=== PATIENT | female | born 1950 | race Caucasian/White ===

== ENCOUNTER 2025-01-17 21:23 | Inpatient (IN) | payer MEDICARE ==
[~2025-01-17] VITALS: Ht 152.4 cm; Wt 52.0 kg
--- NOTE | 2025-01-17 21:36 | ELECTROCARDIOGRAPH REPORT ---
[facility] Test Date: 2025-01-17 Test Time: 21:27:41 Pat Name: JOSE LUIS LOPEZ Department: EMERGENCY ROOM Room: [place] [address] Gender: F Train Driver: : [id number] Requested By: ANA LEVINE Order Number: [id number] Reading MD: Dr. Jason Yousif Measurements Intervals [place] Rate: 80 P: 44 [place]: 141 QRS: -19 QRSD: 83 T: 19 QT: 358 QTc: 413 Interpretive Statements Pacemaker spikes or artifacts Sinus rhythm Borderline left axis deviation Low voltage, precordial leads Abnormal R-wave progression, late transition Borderline T abnormalities, anterior leads Electronically Signed On 01-18-2025 17:29:[address] Jason Yousif Please click the below link to view image of tracing.
[2025-01-17 21:49] LABS: MEAN PLATELET VOLUME 7.9 FL (7.4-10.4); RED CELL DISTRIBUTION WIDTH 14.0 % (11.5-14.5)
--- NOTE | 2025-01-17 21:50 | Physician Documentation ---
History of Present Illness ~ Chief Complaint: Chest Pain Stated Complaint: CHEST PAIN Time Seen by MD: 21:47 HPI Patient presents to the emergency room with intermittent chest pain over the past month associated with shortness of breath. No prior instances. She was at her 's Cardiac rehab and was discussing this and was told to come in to be evaluated. Pain that has not exacerbated or relieved by nothing. She feels it may be heartburn. She has not had a stress test in many years. History of hyperlipidemia and borderline diabetes. Medication Reconciliation Allergies: Coded Allergies: trazodone (Verified Allergy, Severe, Tongue swelling, 01/17/25) Penicillins (Verified Allergy, Unknown, 01/17/25) >5 years, hives, no treatment, PEN-FAST 2 Review of Systems ROS All review of systems negative except as per HPI Physical Exam Vital Signs: Temperature: 96.8, Source: Temporal, Heart Rate: 82, Respiratory R ate: 15, BP: 178/83, Pulse Oximetry: 99, Weight: 52.000 Physical Exam General: Patient is awake, alert, oriented x4 in no acute distress Head: Normocephalic and atraumatic. Eyes: Conjunctival normal. EOMI. PERRL. ENT: Mucous membranes moist. Neck: Supple, trachea is midline. Chest: Clear to auscultation bilaterally without rales, rhonchi, or wheezes. There is no accessory muscle use or retractions. Cardiac: RRR without murmurs, gallops, or rubs. Abd: Soft, nondistended, nontender, with normoactive bowel sounds. No guarding, rebound, or rigidity. Extremities: Normal strength. Normal range of motion. No deformities or edema. No calf tenderness to palpation Progress Results/Orders Results/Orders Orders - TERELL NATARAJAN MD Chest,Single View (01/17/25 21:51) Monitor (01/17/25 21:35) Saline Lock (01/17/25 21:35) Oxygen (01/17/25 21:35) Hs Troponin I W Calculations (01/17/25 23:35) Hs Troponin I W Calculations (01/18/25 00:35) Page Hospitalist (01/17/25 22:10) Fill Out Med Reconciliation (01/17/25 22:10) Cta Chest Pe (01/17/25 23:22) Completed Orders - TERELL NATARAJAN MD Chest,Single View (01/17/25 21:51) Cbc/Diff (01/17/25 21:35) BMP (01/17/25 21:35) PBNP (01/17/25 21:35) Electrocardiogram (01/17/25 21:35) Hs Troponin I W Calculations (01/17/25 21:35) D-Dimer (01/17/25 22:08) Famotidine/Pf Iv Inj (Pepcid Iv Inj) (01/17/25 22:10) Mag & Alum Hydrox/Simeth Susp (Maalox Or (01/17/25 22:10) Aspirin 325mg Tablet (Aspirin 325mg Tabl (01/17/25 22:10) Medications Received in ER Medications (Trade) Dose Ordered Sig/Puma Route PRN Reason Start Time Stop Time Status Last Admin Dose Admin (Pepcid IV inj) 20 mg ONCE ONCE IV 01/17/25 22:10 01/17/25 22:11 DC 01/17/25 22:37 20 MG (Maalox oral suspension) 30 ml ONCE ONCE PO 01/17/25 22:10 01/17/25 22:11 DC 01/17/25 22:37 30 ML (aspirin 325mg tablet) 1 tab ONCE ONCE PO 01/17/25 22:10 01/17/25 22:12 DC 01/17/25 22:37 1 TAB Vital Signs 01/17/25 21:33 Temp 96.8 Pulse 82 Resp 15 B/P (MAP) 178/83 Pulse Ox 99 Laboratory Tests Test 01/17/25 21:42 White Blood Count 7.9 Red Blood Count 4.72 Hemoglobin 13.5 Hematocrit 40.4 Mean Corpuscular Volume 85.6 Mean Corpuscular Hemoglobin 28.6 Mean Corpuscular Hemoglobin Concent 33.5 Red Cell Distribution Width 14.0 Platelet Count 290 Mean Platelet Volume 7.9 Neutrophils (%) (Auto) 53.7 Lymphocytes (%) (Auto) 37.2 Monocytes (%) (Auto) 6.6 Eosinophils (%) (Auto) 2.0 Basophils (%) (Auto) 0.5 Neutrophils # (Auto) 4.2 Lymphocytes # (Auto) 2.9 Monocytes # (Auto) 0.5 Eosinophils # (Auto) 0.2 Basophils # (Auto) 0.0 CBC Comment D-Dimer 1.24 H D-Dimer Comment Sodium Level 138 Potassium Level 3.7 Chloride Level 103 Carbon Dioxide Level 31.5 Anion Gap 4 L Blood Urea Nitrogen 15 Creatinine 0.80 Estimated GFR/1.73 m2 71 BUN/Creatinine Ratio 18.8 Glucose Level 99 Calcium Level 8.8 Troponin I High Sensitivity 8 Pro-B-Type Natriuretic Peptide 113 Albumin 3.4 Chemistry Comments EKG/XRAY/CT/US/VASC/MRI EKG : Additional Comment EKG interpreted by myself shows time of 08/07/2026, rate 80, sinus rhythm, normal axis, no ST changes Chest X-Ray : Additional Comments One view chest x-ray interpreted by myself shows no effusions, no infiltrates and normal cardiac silhouette Medical Decision Making Findings Heart score of four. Patient presented to the emergency room with chest pain as per HPI. Differentials include but are not limited to ACS, GERD, pulmonary embolism, musculoskeletal pain, chest wall pain, esophageal spasm therefore emergent labs and imaging indicated. Chest x-ray is reassuring. Of concern is patient's intermittent symptoms that are not relieved by her usual heartburn medications. She states that this pain feels a bit different. Given her elevated heart score she is considered high risk and we will admit for further investigation. Patient does have an elevated D-dimer in his CTA has been ordered to rule out pulmonary embolism Departure Admitted to Inpatient Unit: yes, to hospitalist Impression: Primary Impression: Chest pain Condition: Guarded Referrals: NO PRIMARY CARE PROVIDER (PCP) Signature Scribe Signature: No scribe Attestation: The note accurately reflects work and decisions made by me.Terell Natarajan MD 01/17/25 22:08 TERELL NATARAJAN MD Jan 17, 2025 21:50
[2025-01-17 22:11] LABS: CREATININE 0.80 MG/DL (0.40-0.90); PRO BRAIN NATRIURETIC PEPTIDE 113 PG/ML (0-125); TOTAL CARBON DIOXIDE 31.5 MMOL/L (24-32); eCRCL 46 ML/MIN; eGFR 71 ML/MIN
[2025-01-17] MEDS: mag hydrox/Alum hydrox/simeth 30ml oral suspension PO ONE (22:37)
[2025-01-17] MEDS: famotidine/PF 10 mg/ml inj IV ONE (22:37)
--- NOTE | 2025-01-17 22:46 | RADIOLOGY REPORT ---
EXAM: DI CHEST,SINGLE VIEW CLINICAL HISTORY: CP TECHNIQUE: Single AP view of the chest WID: COMPARISON: None FINDINGS: Lines and tubes: None Chest: The heart size and pulmonary vasculature is within normal limits. No pleural effusion, pneumothorax, or consolidation. The osseous structures are grossly intact. IMPRESSION: No acute cardiopulmonary abnormality.
[2025-01-17] MEDS ORDERED: magnesium Cl slow-release 64mg tablet PO PRN (23:45)
[2025-01-17] MEDS ORDERED: ondansetron/PF 4mg/2ml inj IV PRN (23:45)
[2025-01-17] MEDS ORDERED: metoprolol tartrate 1mg/ml inj IV PRN (23:45)
[2025-01-17] MEDS ORDERED: mag hydrox/Alum hydrox/simeth 30ml oral suspension PO PRN (23:45)
[2025-01-17] MEDS ORDERED: HYDROcodone/acetaminophen 5mg/325mg tablet PO PRN (23:45)
[2025-01-17] MEDS ORDERED: magnesium hydroxide 30ml (MOM) UD suspension PO PRN (23:45)
[2025-01-17] MEDS ORDERED: potassium Cl 40MEQ/1/2NS 520ml 520 ML IV PRN (23:45)
[2025-01-17] MEDS ORDERED: magnesium sulf-water 2g/50mL 50 ML IV PRN (23:45)
[2025-01-17] MEDS ORDERED: aminophylline 500mg/20ml vial IV PRN (23:45)
[2025-01-17] MEDS ORDERED: potassium Cl 20 mEq SR tablet PO PRN (23:45)
[2025-01-17] MEDS ORDERED: magnesium sulf-water 4G/100mL 100 ML IV PRN (23:45)
[2025-01-17 23:55] LABS: UA COLLECTION TYPE CLN CATCH MIDSTREAM
[2025-01-17 23:56] LABS: LEUKOCYTE ESTERASE ,URINE SMALL (Neg); NITRITES, URINE NEGATIVE (Neg); OCCULT BLOOD,URINE MODERATE (Neg)
[2025-01-18] VITALS (13 sets, daily range): BP systolic 137–171; BP diastolic 62–89; PULSE 60–90; RESP 14–21; TEMP 97.1–98.2; O2SAT 94–100
[2025-01-18 00:02] LABS: MUCUS STRANDS FEW /LPF (Neg); SQUAMOUS EPITHELIAL CELL,UR FEW /LPF (FEW)
[2025-01-18 00:06] LABS: CREATININE 0.87 MG/DL (0.40-0.90); PHOSPHORUS 3.6 MG/DL (2.3-4.5); TOTAL CARBON DIOXIDE 27.7 MMOL/L (24-32); eCRCL 42 ML/MIN; eGFR 64 ML/MIN
[2025-01-18 00:07] LABS: APTT 25 SECONDS (22-32); INR 1.0 INR
--- NOTE | 2025-01-18 00:14 | HISTORY AND PHYSICAL-Residence ---
History & Physical Providers to CC Resident Creating Document: SHAILESH STOCK RES ~ History of Present Illness Reason for Admit\Complaint: Chest pain History of Present Illness The 74-year-old female presented to the ER with a chief concern of chest pain that started earlier this morning. She was taking out garbage and she fell achy pain in the lower mid chest radiating to the back. [place] nauseous. No sweating. She sat with the pain got worse and so she came to the ER. In the ER, she received aspirin 324 mg p.o. once and also Pepcid. Now, stated that the pain is better. Denies any increase in pain with deep breaths. Denies any exacerbating or relieving factors. Denies any association with food or water intake. She had a similar kind of pain about two and half weeks back that lasted for about 45 minutes. She had a fall earlier this morning by tripping over a soda can. Fell on her knees and hands. Did not hit her chest to the floor and did not hit her head to the floor and did not lose consciousness. Denies any previous cardiac history. Denies palpitations or shortness of breaths, dizziness or syncope, dysuria, vomiting, constipation or diarrhea or any other complaints. Denies smoking tobacco and occasionally drinks alcohol. Takes medication for hyperlipidemia. 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 Daughter at the bedside. Never had a colonoscopy in the past. Gets a Cologuard test done every year and the preop signs were negative. Had one done recently but result not available yet. Allergies: Coded Allergies: trazodone (Verified Allergy, Severe, Tongue swelling, 01/17/25) Penicillins (Verified Allergy, Unknown, 01/17/25) >5 years, hives, no treatment, PEN-FAST 2 Past Medical History Past Medical History Hyperlipidemia, vitamin-D supplementation, history of ITP-s/p rituximab, platelets and blood transfusions about 10 years back Past Surgical History Surgical History Comment Two sections, cholecystectomy, back surgery Past Social History Social History Comment Denies smoking tobacco. Occasionally drinks alcohol. Denied abusing any other recreational drugs ROS ROS Constitutional: No fever, chills, dizziness, weakness, weight gain or loss Eyes: No pain, erythema, discharge, blurring of vision ENT: No sore throat, epistaxis, tinnitus Cardiovascular: Chest pain present. No chest pressure, chest discomfort, palpitations, syncope, lower extremity edema, paroxysmal nocturnal dyspnea Respiratory: No shortness of breath, cough, hemoptysis Gastrointestinal: Normal appetite. No nausea, vomiting, diarrhea, constipation, hematemesis, abdominal pain, bloating, melena or fresh blood Genitourinary: No frequency, urgency, nocturia, hematuria or dysuria Musculoskeletal: No arthralgias or myalgias Integumentary: No change in skin, hair, nails. No swelling, bruising, abrasions Neurologic: No headache, neck pain, numbness or tingling of the extremities, weakness Psychiatric: No delusions, depression, loss of interest in normal activity or change in sleep pattern, hallucinations, suicidal ideations Endocrine: No fatigue, weakness, polydipsia, polyuria, change in appetite, heat or cold intolerance, sweating, dry skin Hematological: No bleeding, petechiae, bruising Allergies: No asthma or urticaria Exam Vitals: Vital Signs Date Time Temp Pulse Resp B/P (MAP) Pulse Ox O2 Delivery O2 Flow Rate FiO2 01/17/25 23:37 60 16 158/70 (99) 100 01/17/25 21:33 96.8 General: Alert and oriented x4 HEENT: Normocephalic and atraumatic. Pupils equal round reactive to light and accommodation. Extraocular movements intact. Oral and nasal mucosa moist Neck: Trachea is in midline. No masses or JVD Chest: Bilateral normal breath sounds. No crackles, rhonchi or wheezes Cardiovascular: Regular rate and rhythm. S1-S2 normal. No rubs or murmurs Abdomen: Soft, nontender nondistended. Bowel sounds present Extremities: No cyanosis, clubbing or edema Central Nervous System: No gross sensory or motor deficits. CN II to XII grossly intact Skin: Warm and dry. Has a reddish birthmark on right leg near ankle Diagnostic Data Last Recorded Lab Results: 01/17/252 01/17/25 2312 Diagnostic Data: Laboratory Tests Test 01/17/25 21:42 Prothrombin Time 10.1 SECONDS (9.0-12.0) INR International Normalized Ratio 1.0 INR Activated Partial Thromboplast Time 25 SECONDS (22-32) D-Dimer 1.24 MG/L FEU (0-0.50) H D-Dimer Comment Coagulation Comments Advance Care Planning Advanced Care plannin - 30 Minutes Additional Plan Chest pain Possible unstable angina vs GERD Heart score4, SHIRA score 1 Received Pepcid 20 mg IV once and aspirin 325 mg p.o. once in the ER Feels better with the above medications D-dimer slightly elevated-1.24. So, chest CTA ordered by the ER physician. Pending result Chest x-ray did not show any significant abnormalities Continue aspirin 81 mg p.o. daily, metoprolol succinate 25 mg p.o. daily and Lipitor 40 mg p.o. daily EKG showed no sinus rhythm, regular rate with no significant ST changes. T-wave inversion lead III - less than 2 mm Lipid panel and A1c ordered TSH and free T4 ordered Lexiscan tomorrow in the a.m. NPO after midnight Consult Cardiology if abnormal Lexiscan Continue Protonix 40 mg p.o. daily Nitro 0.4 mg sublingual Q 5 minutes p.r.n. Morphine 1 mg IV q.4h p.r.n. for pain Continue normal saline 75 cc/hour Hyperlipidemia Lipid panel ordered Started Lipitor 40 mg p.o. daily Unsure about home medication. Awaiting med reconciliation History of ITP S/p rituximab, platelet transfusion blood transfusion many years back Today, platelets within normal limits # awaiting home medication reconciliation DVT prophylaxis: Lovenox 40 mg subcutaneous daily Diet: Heart healthy diet . NPO after midnight Shailesh Stock MD Internal Medicine Resident, PGY 3 Date of Service: Jan 18, 2025 Billing Provider: BG CABELLO MD,SHAILESH RES Jan 18, 2025 00:14
[2025-01-18] MEDS: normal saline 1000ml 1,000 ML IV SCH (00:50)
[2025-01-18] MEDS ORDERED: ZOLP-679 PO (01:31)
[2025-01-18] MEDS ORDERED: IBAN150T21 PO (01:31)
[2025-01-18] MEDS ORDERED: LOSA100T58 PO (01:31)
--- NOTE | 2025-01-18 02:22 | RADIOLOGY REPORT ---
INDICATION: elevated d-d TECHNIQUE: Multidetector CTA of the chest was performed of the chest with 100 cc of intravenous contr ast. PULMONARY ANGIOGRAPHY PROTOCOL was utilized using a bolus-tracking technique centered on the neha n pulmonary artery. Axial, coronal and sagittal multiplanar and MIP reformats were performed. Radiation Dose Information: CT Dose: CTDI volume is 14.4 mGy. Dose-length product is 467.7 mGy*cm The dose indicators for CT are the volume Computed Tomography (CT) Dose Index (CTDIvol) and the Dose Length Product (DLP), and are measured in units of mGy and mGy-cm, respectively. These indicators are not patient dose, but values generated from the CT scanner acquisition factors. The report includes radiation exposure data for exposures received during this examination. Comparison: None Findings: Airway appears patent. Thyroid gland appears unremarkable. No focal filling defect within the pulmon shani artery to suggest pulmonary embolism. The thoracic aorta appears normal in caliber and contour. No sizable pericardial or pleural effusion. The heart is prominent size. No significant adenopathy. Lungs appear clear without focal consolidation. Visualized portions of the upper abdomen demonstrate small hiatal hernia. There has been prior cholec ystectomy with dilation of the common bile duct to 1.8 cm. Mild intrahepatic biliary dilatation. IMPRESSION: 1. No evidence of pulmonary embolus. 2. Dilated common bile duct and intrahepatic biliary dilatation in the presence of cholecystectomy. C orrelation with bilirubin levels and LFTs would be of benefit. Consider dedicated imaging.
[2025-01-18 03:20] LABS: MEAN PLATELET VOLUME 8.1 FL (7.4-10.4); RED CELL DISTRIBUTION WIDTH 14.0 % (11.5-14.5)
[2025-01-18 03:27] LABS: APTT 24 SECONDS (22-32); INR 1.0 INR
[2025-01-18 03:40] LABS: CHOL/HDL RATIO 3.3 (0.00-4.99); CREATININE 0.69 MG/DL (0.40-0.90); LDL CHOLESTEROL 115 MG/DL (50-100); PHOSPHORUS 3.2 MG/DL (2.3-4.5); TOTAL CARBON DIOXIDE 27.8 MMOL/L (24-32); eCRCL 53 ML/MIN; eGFR 84 ML/MIN
[2025-01-18] MEDS: potassium Cl 20 mEq SR tablet PO PRN (06:12)
[2025-01-18] MEDS: pantoprazole 40mg Tablet.DR PO SCH (07:30)
[2025-01-18] MEDS: aspirin 81mg, enteric-coated 1 TAB TABLET.DR PO SCH (08:00)
[2025-01-18] MEDS: K and/or MAG REPLACEMENT MC SCH (08:00)
[2025-01-18] MEDS: metoprolol succinate 25mg (24-HOUR) SR. Tablet PO SCH (08:00)
[2025-01-18] MEDS: regadenoson 0.4mg/5ml syringe IV PRN (11:07)
[2025-01-18] MEDS ORDERED: SERT-434 PO (11:55)
[2025-01-18] MEDS ORDERED: ROSU40TA89 PO (11:55)
[2025-01-18] MEDS ORDERED: ZOLP5TAB8 PO (12:12)
--- NOTE | 2025-01-18 12:27 | RADIOLOGY REPORT ---
Procedure: NM NM CHRIS SCAN Exam Date: 01/18/2025 10:13 AM Reason for study/Clinical History: unstable angina Comparison Study: None Myocardial Perfusion Study with SPECT Technique: The patient received an intravenous injection of 7.3 mCi of technetium-99m sestamibi whil e at rest. After a short delay, SPECT tomographic images of the heart were obtained. The patient th en went to the stress lab where they received an intravenous infusion of 0.[address] andard protocol. 30 mCi of technetium-99m sestamibi was injected intravenously immediately after th e start of the lexiscan infusion. Gated SPECT tomographic images of the heart were acquired and proc essed. Findings: No reversible perfusion defect. End diastolic volume: 37 mL End systolic volume: 5mL The left ventricular ejection fraction is 86 %. (normal greater than 50%) Impression: No reversible defect. The left ventricular ejection fraction is 86 %.
--- NOTE | 2025-01-18 12:51 | PROGRESS NOTE- Residence ---
Progress Note - Resident Providers to CC Resident Creating Document: NORY AZEVEDO RES ~ Antibiotic Timeout Antibiotic Ordered?: No Subjective This is 74-year-old female who presented to the ER with a chief concern of lower mid chest pain,radiating to her back,patient rated the pain 6/10 associated with nausea and mild shortness of breath. Patient denies palpitations or shortness of breaths, dizziness or syncope, dysuria, vomiting, constipation or diarrhea or any other complaints. In the ER, she received aspirin 324 mg p.o. once and also Pepcid. Now, stated that the pain is better.Denies any exacerbating or relieving factors. Denies any association with food or water intake. She had a similar kind of pain about two and half weeks back that lasted for about 45 minutes. She had a fall earlier this morning by tripping over a soda can. Fell on her knees and hands. Did not hit her chest to the floor and did not hit her head to the floor and did not lose consciousness. Patient stated that she had a history of ITP and received rituximab and platelets and blood transfusions about 10 years back. Objective Vital Signs Date Time Temp Pulse Resp B/P (MAP) Pulse Ox O2 Delivery O2 Flow Rate FiO2 01/18/25 11:04 78 14 170/80 96 Room Air 01/18/25 11:00 97.2 Result Diagram: 01/18/25 0305 01/18/25 0305 General:Alert and oriented x4 HEENT:Normocephalic and atraumatic. Pupils equal round reactive to light and accommodation. Extraocular movements intact. Oral and nasal mucosa moist Neck:Trachea is in midline. No masses or JVD Chest:Bilateral normal breath sounds. No crackles, rhonchi or wheezes Cardiovascular:Regular rate and rhythm. S1-S2 normal. No rubs or murmurs Abdomen:Soft, nontender nondistended. Bowel sounds present Extremities:No cyanosis, clubbing,mild edema,has a reddish birthmark on right leg near ankle Central Nervous System:No gross sensory or motor deficits. CN II to XII grossly intact Skin:Warm and dry. Coagulation Studies Laboratory Tests Test 01/17/25 21:42 01/18/25 03:05 D-Dimer 1.24 MG/L FEU (0-0.50) H D-Dimer Comment Prothrombin Time 10.5 SECONDS (9.0-12.0) INR International Normalized Ratio 1.0 INR Activated Partial Thromboplast Time 24 SECONDS (22-32) Coagulation Comments Counseling Services Smoking & Tobacco Cessation: N/A Assessment Assessment The 74-year-old female presented to the ER with a chief concern of lower mid chest pain. Plan Plan Acute Chest pain,ACS has been ruled out D-dimer slightly elevated-1.24. CTA showed no abnormalities. Continue aspirin 81 mg p.o. daily, metoprolol succinate 25 mg p.o. daily and Losartan. EKG showed no sinus rhythm, regular rate with no significant ST changes. T-wave inversion lead III - less than 2 mm.. Lexiscan showed no reversible defect. The left ventricular ejection fraction is 86 %. TSH which has been ordered. ACEi allergy Patient stated today that she is allergic to ACEi and her tongue swells. ACEi allergy has been noted and patient will be on Losartan. Hyperlipidemia Lipid panel-Triglycerides 82;LDL 115,HDL 59 Patient will be on Rosuvastatin. Osteoporosis: Patient states that she is osteoporotic and takes Ibrandonate sodium once in 30 days. History of ITP S/p rituximab, platelet transfusion blood transfusion many years back Platelets within normal limits Clinical depression Patient stated that she was diagnosed with clinical depression and continues to take Sertaline 100mg everyday. Hematuria- Patient stated that it runs in her family and have been tested for malignancy multiple times and has always been negative. Her hemoglobin is 12.8mg/dl DVT prophylaxis: Lovenox 40 mg subcutaneous daily Diet: Heart healthy diet Disposition: Lexiscan was negative and most likely patient will get discharged in the a.m. Nory Azevedo MD Internal Medicine Resident PGY-1 Date of Service: Jan 18, 2025 Billing Provider: TARA RENTERIA DO Common Visit Codes: [id number] INP/OBS CARE(HIGH) NORY AZEVEDO, RES Jan 18, 2025 12:51 TARA RENTERIA DO Jan 18, 2025 20:08
--- NOTE | 2025-01-18 16:43 | CARDIOLOGY REPORT ---
APPROVED REPORT EXAM: Comprehensive 2D, Doppler, and color-flow Echocardiogram. Patient Location: 302 Blood Pressure: 160/85 mmHg Heart Rate: 58 bpm Rhythm: Sinus Bradycardia Indications Chest Pain SOB State Pilot is BV. Jim MD. Previous echo: None 2D Dimensions LA Diam4.4 cm IVSd 1.2 (0.7-1.1cm) LVDd 4.0 cm PWd 1.2 (0.7-1.1cm) IVSs 1.6 (0.8-1.2cm) LVDs 2.5 (2.5-4.0cm) Aortic Root(2D) 2.7 cm PWs 1.6 (0.8-1.2cm) LVOT Diameter 1.91 (1.8-2.4cm) LVEF(%) 68.1 (>50%) Ao Asc Diam.3.28 cmIVC 16.22 mm FS (%) 37.5 % SV 46.3 ml CO 2.7 L/min M-Mode Dimensions MV EPSS 0.4 (<0.5cm) Aortic Valve AoV Peak Benji. 143.5 cm/s AoV VTI 30.8 cm AO Peak GR. 8.2 mmHg AO Mean GR. 4 mmHg LVOT VTI 23.56 cm LVOT Peak Benji. 103.1 cm/s ANGELICA(VTI)/BSA 2.20 cm2/m2 ANGELICA (VTI) 2.20 cm2 Mitral Valve MV E Velocity 50.7 cm/s MV Peak Gr. 2 mmHg MV DECEL TIME 212 ms MV A Velocity 73.8 cm/s MV PHT 60 ms E/A Ratio 0.7 MVA (PHT) 3.67 cm2 MV VMax66.1 cm/s TDI Medial E' P. V 10.47 cm/s E/Medial E' 4.8 Tricuspid Valve TR P. Velocity 233 cm/s RAP ESTIMATE 10 mmHg TR Peak Gr. 22 mmHg RVSP 32 mmHg Pulmonary Vein S1 Velocity 30.8 cm/s D2 Velocity 23.8 cm/s PVa Cthlnjdk75.1 cm/s PVa [id number] msec LEFT VENTRICLE Normal LV size and function. Mild concentric hypertrophy. Overall LVEF is 65%. RIGHT VENTRICLE RV appears normal in size and contractility. ATRIA Left atrium is mildly dilated. AORTIC VALVE Trileaflet AV appears sclerotic without stenosis. Trivial insufficiency. MITRAL VALVE MV is thickened with mild annular calcification and no stenosis. Trace mitral regurgitation. TRICUSPID VALVE The tricuspid valve is normal in structure. Trace tricuspid regurgitation. PULMONIC VALVE The pulmonary valve is normal in structure. Trace pulmonic regurgitation. GREAT VESSELS The aortic root is normal in size. The ascending aorta is normal in size. The IVC is normal in size a nd collapses >50% with inspiration. PERICARDIUM Trivial anterior pericardial effusion with no evidence of hemodynamic compromise. Other Information Study Quality: Adequate Conclusion Overall LVEF is 65%. Normal LV size and function. Mild concentric hypertrophy. RV appears normal in size and contractility. Trileaflet AV appears sclerotic without stenosis. Trivial insufficiency. Trace mitral regurgitation. Trace tricuspid regurgitation. Trivial anterior pericardial effusion with no evidence of hemodynamic compromise.
[2025-01-18] MEDS: enoxaparin 40mg/0.4ml syringe SQ SCH (20:00)
[2025-01-18] MEDS ORDERED: ATOR40TA72 PO (21:05)
[2025-01-19 02:00] VITALS: BP 141/75; PULSE 66; RESP 19; TEMP 97.8; O2SAT 96
[2025-01-19 06:00] VITALS: BP 150/68; PULSE 63; RESP 20; TEMP 97.3; O2SAT 94
[2025-01-19 06:51] LABS: MEAN PLATELET VOLUME 8.2 FL (7.4-10.4); RED CELL DISTRIBUTION WIDTH 14.3 % (11.5-14.5)
[2025-01-19 06:58] LABS: APTT 25 SECONDS (22-32); INR 1.0 INR
[2025-01-19 07:10] LABS: CREATININE 0.75 MG/DL (0.40-0.90); PHOSPHORUS 3.5 MG/DL (2.3-4.5); TOTAL CARBON DIOXIDE 25.0 MMOL/L (24-32); eCRCL 49 ML/MIN; eGFR 76 ML/MIN
[2025-01-19] MEDS ORDERED: PANT40TA54 PO ×2 (07:56→09:38)
--- NOTE | 2025-01-19 10:13 | DISCHARGE SUMMARY-Residence ---
Discharge Summary Providers to CC Resident Creating Document: WENDY DOWNING RES CC: GARCÍA KAUR MD ~ Discharge Summary Assessment 74-year-old female with history of osteoporosis on bisphosphonates, hyperlipidemia/hypertension, history of ITP, depression, presented to the ER with chief complaints of chest pain Admission Diagnosis: Chest pain Hospital Course DATE OF ADMISSION: 01/17/2025 DATE OF DISCHARGE: 01/19/2025 Discharge Diagnosis\Comment: Chest pain likely secondary to GERD, ACS ruled out Hyperlipidemia Hypertension Osteoporosis on bisphosphonates Depression History of ITP Familial hematuria ANDREA inhibitors allergy Operations\Procedures: None Consultants: None Complications: None Condition on DC: Stable New Medications: Pantoprazole Sodium (Pantoprazole Sodium) 40 Mg Tablet.dr 40 MG PO BKF for 30 Days, #30 TAB.SR Continued Medications: Atorvastatin Calcium (Atorvastatin Calcium) 40 Mg Tablet 1 TAB PO DAILY Ibandronate Sodium (Ibandronate Sodium) 150 Mg Tablet 1 TAB PO Q30D Losartan Potassium (Losartan Potassium) 100 Mg Tablet 1 TAB PO DAILY Sertraline HCl (Sertraline HCl) 100 Mg Tablet 1 TAB PO DAILY Zolpidem Tartrate* (Ambien*) 5 Mg Tablet 2 TAB PO HSPRN PRN for sleep, TAB Discharge Summary: 74-year-old female with history of osteoporosis on bisphosphonates, hyperlipidemia/hypertension, history of ITP, depression, presented to the ER with chief complaints of chest pain Hospital course -patient admitted for evaluation of the chest pain with heart score of four. Had undergone evaluation with troponins which were negative, and Lexiscan was negative. Her D-dimer was slightly elevated and CTA ruled out pulmonary embolism. Chest pain is thought to be secondary to GERD as patient is on bisphosphonates and he she is having reflux symptoms lately. chest pain got better with Protonix. -we continued her home medications of sertraline and losartan for depression and hypertension. And she is also taking rosuvastatin for hyperlipidemia. She had past history of ACEI allergy leading to angioedema, no such symptoms with losartan. She had ITP however during the hospitalization her platelets were nor mal and she had family history of hematuria. CTA chest showed intrahepatic biliary radicle dilatation secondary to cholecystectomy however her LFTs were normal and we did not pursue any further imaging at this point Patient recovered earlier than unexpected and she expresses desire to go home. She is hemodynamically stable at the time of discharge, physical condition at the time of discharge is as follows General: Elderly female, AAO x4, not in apparent distress Head: Normocephalic with an atraumatic Eyes: Pupils- 3mm, reacting to light, conjunctiva- anicteric Nose and throat: No polyps, septum- normal, no mucosal ulcers Neck: Supple, no lymphadenopathy, no carotid bruit Respiratory: No use of accessory muscles of respiration, Bilateral normal vesiscular breath sounds heard. No wheeze, rhochi or creps Cardiac: S1-S2 heard, rythm regular, no gallop/murmur Abdomen: non distended, no tenderness, no organomegaly, bowel sounds- heard Extremities: no clubbing, no pedal edema, no deformities, peripheral pulses- 2+. reddish birthmark on right leg near ankle Skin: warm and dry, no rash, no purpura Neuro: No focal deficit, gross cranial nerve exam- normal Labs at discharge -CBC- H and H 13/40, WBC 8.5, platelets 277 -BMP sodium 140, potassium four, BUN 13, creatinine 0.75, Troponins 10, A1c 5.8, Triglycerides 82, total cholesterol 197, LDL 115, HDL 59, TSH 3.14 Bilirubin 0.6, AST/ALT/ALP 36/37/102 Lexiscan on 01/18/25 Impression: No reversible defect. The left ventricular ejection fraction is 86 %. Echocardiogram on 01/18/2025 Conclusion Overall LVEF is 65%. Normal LV size and function. Mild concentric hypertrophy. RV appears normal in size and contractility. Trileaflet AV appears sclerotic without stenosis. Trivial insufficiency. Trace mitral regurgitation. Trace tricuspid regurgitation. Trivial anterior pericardial effusion with no evidence of hemodynamic compromise. Chest CTA on 01/18/2025 IMPRESSION: 1. No evidence of pulmonary embolus. 2. Dilated common bile duct and intrahepatic biliary dilatation in the presence of cholecystectomy. Correlation with bilirubin levels and LFTs would be of benefit. Consider dedicated imaging. Discharge medications can be found above and she is sent home with the following recommendations Please follow up with your pcp, Dr. Boyce within a week of the discharge you might be having reflux, and we prescribed you protonix for 2 weeks. discuss alternate options for bisphosphonates as that might be causing reflux Recommended to measure BP at home return to the ER for recurrence of the symptoms *Problems/Diagnosis: (1) Chest pain Status: Acute Total Time Spent on D/C: > 30 Minutes Date of Service: Jan 19, 2025 Billing Provider: GARCÍA KAUR MD, HARIVARSHA, RES Jan 19, 2025 10:12
== END 2025-01-19 10:48 | disposition home or self-care (01) | DRG 392 ==
LOC: ER 21:23 → ED HOLD 23:44 → PCU 3S 01-18 07:03
PROVIDERS: ADMIT Surgery; ATTEND Family Medicine
PROC: B32T1ZZ Computerized Tomography (CT Scan) of Left Pulmonary Artery using Low Osmolar Contrast (ICD-10-PCS; principal; 2025-01-17)
PROC: B3201ZZ Computerized Tomography (CT Scan) of Thoracic Aorta using Low Osmolar Contrast (ICD-10-PCS; 2025-01-17)
PROC: B32S1ZZ Computerized Tomography (CT Scan) of Right Pulmonary Artery using Low Osmolar Contrast (ICD-10-PCS; 2025-01-17)
PROC: 4A02XM4 Measurement of Cardiac Total Activity, External Approach (ICD-10-PCS; 2025-01-18)
PROC: 3E033HZ Introduction of Radioactive Substance into Peripheral Vein, Percutaneous Approach (ICD-10-PCS; 2025-01-18)
DX: K21.9 Gastro-esophageal reflux disease without esophagitis (principal); E78.5 Hyperlipidemia, unspecified; I10 Essential (primary) hypertension; F32.A Depression, unspecified; M81.8 Other osteoporosis without current pathological fracture; Z88.8 Allergy status to other drugs, medicaments and biological substances; Z90.49 Acquired absence of other specified parts of digestive tract; Z98.891 History of uterine scar from previous surgery; Z88.0 Allergy status to penicillin
CPT/HCPCS: 36415; 71045; 71275; 78452; 80048; 80053; 80061; 81001; 81003; 83036; 83735; 83880; 84100; 84439; 84443; 84484; 85025; 85379; 85610; 85730; 87081; 87088; 93005; 93017; 93306; 96374; 99285; A9500; G0378; J2785; J3490; J7030; Q9967